=== PATIENT | female | born 1945 | race Caucasian/White ===

== ENCOUNTER 2016-11-05 15:54 | Emergency (ER) | payer MEDICARE, BC ==
[2016-11-05 16:05] VITALS: BP 156/66
--- NOTE | 2016-11-05 16:08 | EDM.PDOC ---
ED HPI ENT - General Chief Complaint: ENT Problem Stated Complaint: HEADACHE,NECKACHE,COLD FOR 2 WEEKS Time Seen by Provider: 11/05/16 16:07 Source of Information: Reports: Patient, RN, RN notes reviewed History Limitations: Reports: No limitations - History of Present Illness INITIAL COMMENTS - FREE TEXT/NARRATIVE: Patient presents with 2-3 week history of sinus pain/pressure with postnasal drip. Sore throat with occasional cough. Denies fever. Occasional chills. 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, Other medication(s) - Related Data Allergies/ADRs: Allergies Allergy/AdvReac Type Severity Reaction Status Date / Time hydrocodone Allergy Nausea Verified 11/05/16 15:58 Sulfa (Sulfonamide Allergy unkown Verified 11/05/16 15:58 Antibiotics) Home Meds: Home Meds Lovastatin [Lovastatin] 60 mg PO DAILY 12/18/14 [History] Warfarin [Coumadin] 6.5 mg PO 12/18/14 [History] Past Medical History HEENT History: Reports: Impaired vision, Other (see below) (vertigo) Cardiovascular History: Reports: Heart murmur, Heart valve replacement (after viral infection.), Hypertension - Past Surgical History Cardiovascular Surgical History: Reports: Valve replacement (mechanical), Other (see below) Other Cardiovascular Surgeries/Procedures: mechanical valve GI Surgical History: Reports: Appendectomy Female Surgical History: Reports: Hysterectomy Social & Family History - Family History Family Medical History: Noncontributory - Tobacco Use Smoking Status *Q: Never Smoker Second Hand Smoke Exposure: No - Caffeine Use Caffeine Use: Reports: Coffee, Soda, Tea - Alcohol Use Days Per Week of Alcohol Use: 0 - Recreational Drug Use Recreational Drug Use: No - Living Situation & Occupation Living situation: Reports: with family Occupation: retired ED ROS ENT - Review of Systems Review Of Systems: ROS reveals no pertinent complaints other than HPI. ED EXAM, ENT - Physical Exam Exam: See Below Exam Limited By: No limitations General Appearance: alert, WD/WN, no apparent distress Eye Exam: bilateral eye: normal inspection Ears: other (right TM retracted ossicles protruding. No erythema. ) Nose: injected turbinates (inferior with purulent drainage right and left. ), other (oral membranes erythematous with postnasal drip. ) Head: atraumatic, normocephalic Neck: normal inspection, supple, non-tender, full range of motion Respiratory/Chest: other (rattly in apex in lungs.) Cardiovascular: normal peripheral pulses, regular rate, rhythm, no edema, no gallop, no JVD, no murmur, no rub GI/Abdominal: normal bowel sounds, soft, non tender, no organomegaly, no distention, no abnormal bruit, no mass Back: normal inspection, full range of motion Extremities: normal inspection, normal range of motion, non-tender, no pedal edema, normal capillary refill Neurological: alert, oriented, CN II-XII intact, normal cognition, normal gait, normal reflexes, no motor/sensory deficits Psychiatric: normal affect, normal mood Skin: Warm, Dry, Intact, Normal color, No rash Lymphatic: no adenopathy Course - Vital Signs Last Recorded V/S: Last Vital Signs Temp 35.9 C 11/05/16 16:04 Pulse 74 11/05/16 16:04 Resp 20 11/05/16 16:04 BP 156/66 H 11/05/16 16:04 Pulse Ox 98 11/05/16 16:04 - Orders/Labs/Meds Orders: Active Orders 24 hr Category Date Time Status CULTURE STREP A CONFIRMATION [] Stat Lab 11/05/16 16:09 Results STREP SCRN A RAPID W CULT CONF [] Stat Lab 11/05/16 16:09 Results Labs: Rapid strep: negative Influenza A/B: negative Departure - Departure Time of Disposition: 16:56 Disposition: Home, Self-Care 01 Condition: good Clinical Impression: Labyrinthitis of right ear Sinusitis Qualifiers: Sinusitis location: unspecified location Chronicity: acute Recurrence: non- recurrent Qualified Code(s): J01.90 - Acute sinusitis, unspecified Barotitis media Qualifiers: Encounter type: initial encounter Qualified Code(s): T70.0XXA - Otitic barotrauma, initial encounter Instructions: Sinusitis, Adult, [id number], Sinus Headache, Barotitis Media, Labyrinthitis, [id number] Forms: ED Department Discharge Additional Instructions: Rx: Augmentin 875mg Use over the counter Coricidin HBP Chest Congestion & Cough, follow direction on label. Frequent saltwater gargles until improved. Follow up in clinic in 5 to 7 days for recheck. - My Orders Last 24 Hours: My Active Orders 11/05/16 16:09 CULTURE STREP A CONFIRMATION [RM] Stat STREP SCRN A RAPID W CULT CONF [RM] Stat - Assessment/Plan Last 24 Hours: My Active Orders 11/05/16 16:09 CULTURE STREP A CONFIRMATION [RM] Stat STREP SCRN A RAPID W CULT CONF [RM] Stat
== END 2016-11-05 17:03 | disposition home or self-care (01) ==
LOC: DL.ED 15:54
DX: H83.01 Labyrinthitis, right ear (principal); J01.90 Acute sinusitis, unspecified; T70.0XXA Otitic barotrauma, initial encounter; Z88.5 Allergy status to narcotic agent; Z88.2 Allergy status to sulfonamides; Z90.710 Acquired absence of both cervix and uterus; Z90.49 Acquired absence of other specified parts of digestive tract
CPT/HCPCS: 87081; 87430; 87804; 99283; 99284

== ENCOUNTER 2016-11-11 15:25 | Emergency (ER) | payer MEDICARE, BC ==
[2016-11-11] MEDS ORDERED: Sodium Chloride 0.9% 10 ML Syringe FLUSH PRN (15:43)
--- NOTE | 2016-11-11 15:43 | EDM.PDOC ---
<Roque Coffman - Last Filed: 11/11/16 18:51> ED HISTORY OF PRESENT ILLNESS - General Chief Complaint: Chest Pain Stated Complaint: AMB Time Seen by Provider: 11/11/16 15:32 Source of Information: Reports: Patient, Old records, Provider (Dr. Salgado), RN, RN notes reviewed History Limitations: Reports: No limitations - Related Data Allergies/ADRs: Allergies Allergy/AdvReac Type Severity Reaction Status Date / Time hydrocodone Allergy Nausea Verified 11/05/16 15:58 Sulfa (Sulfonamide Allergy unkown Verified 11/05/16 15:58 Antibiotics) Home Meds: Home Meds Acetaminophen [Tylenol] 650 mg PO ASDIRECTED PRN 11/11/16 [History] Azelastine HCl [Azelastine] 1 drop EYEBOTH BID 11/11/16 [History] Brinzolamide [Azopt 1% Ophth Susp] 1 drop EYEBOTH BID 11/11/16 [History] Enalapril [Vasotec] 10 mg PO DAILY 11/11/16 [History] Metoprolol Succinate [Toprol Xl] 50 mg PO DAILY 11/11/16 [History] Warfarin Sodium [Jantoven] 6 mg PO DAILY 11/11/16 [History] amLODIPine [Norvasc] 2.5 mg PO DAILY 11/11/16 [History] atorvaSTATin [Lipitor] 40 mg PO BEDTIME 11/11/16 [History] Past Medical History HEENT History: Reports: Impaired vision, Other (see below) (vertigo) Cardiovascular History: Reports: Heart murmur, Heart valve replacement (after viral infection.), Hypertension - Past Surgical History Cardiovascular Surgical History: Reports: Valve replacement (mechanical), Other (see below) Other Cardiovascular Surgeries/Procedures: mechanical valve GI Surgical History: Reports: Appendectomy Female Surgical History: Reports: Hysterectomy Social & Family History - Family History Family Medical History: Noncontributory - Tobacco Use Smoking Status *Q: Never Smoker Second Hand Smoke Exposure: No - Caffeine Use Caffeine Use: Reports: Coffee, Soda, Tea - Alcohol Use Days Per Week of Alcohol Use: 0 - Recreational Drug Use Recreational Drug Use: No - Living Situation & Occupation Living situation: Reports: with family Occupation: retired Course - Vital Signs Last Recorded V/S: Last Vital Signs Temp 97 F 11/11/16 15:25 Pulse 67 11/11/16 15:25 Resp 18 11/11/16 15:25 BP 125/57 L 11/11/16 15:25 Pulse Ox 98 11/11/16 15:25 - Orders/Labs/Meds Orders: Active Orders 24 hr Category Date Time Status EKG 12 Lead [EKG Documentation Completion] [RC] STAT Care 11/11/16 15:43 Active Peripheral IV Care [RC] . DIRECTED Care 11/11/16 15:44 Active Chest 1V Frontal [CR] Stat Exams 11/11/16 15:43 Taken UA W/MICROSCOPIC [URIN] Stat Lab 11/11/16 15:43 Uncollected Peripheral IV Insertion Adult [OM.PC] Stat Oth 11/11/16 15:43 Ordered Labs: Laboratory Tests 11/11/16 11/11/16 11/11/16 Range/Units 15:55 15:55 15:55 WBC 6.9 (5.0-10.0) 10^3/uL RBC 4.53 (4.2-5.4) 10^6/uL Hgb 13.2 (12.0-16.0) g/dL Hct 39.1 (37.0-47.0) % MCV 86.3 (80-100) fL MCH 29.1 (27.0-34.0) pg MCHC 33.8 (33.0-35.0) g/dL Plt Count 194 (150-450) 10^3/uL Neut % (Auto) 68.7 (42.2-75.2) % Lymph % (Auto) 21.6 (20.5-50.1) % Angelina % (Auto) 7.1 (2-8) % Eos % (Auto) 2.0 (1.0-3.0) % Baso % (Auto) 0.6 (0.0-1.0) % PT 23.9 H (9.0-12.0) SEC INR 2.4 H (0.9-1.2) Sodium 140 (135-145) mmol/L Potassium 4.2 (3.6-5.0) mmol/L Chloride 102 (101-111) mmol/L Carbon Dioxide 29.0 (21.0-31.0) mmol/L Anion Gap 13.2 BUN 23 H (7-18) mg/dL Creatinine 0.9 (0.6-1.3) mg/dL Est Cr Clr Drug Dosing 50.23 mL/min Estimated GFR (MDRD) > 60 BUN/Creatinine Ratio 25.55 Glucose 103 (74-105) mg/dL Calcium 9.2 (8.4-10.2) mg/dl Total Bilirubin 0.7 (0.2-1.0) mg/dL AST 23 (10-42) IU/L ALT 32 (10-60) IU/L Alkaline Phosphatase 73 (42-121) IU/L Creatine Kinase (26-174) IU/L Creatine Kinase Index (0-2.4) % CK-MB (CK-2) (0.4-4.7) ng/mL Troponin I < 0.02 (0.00-0.02) ng/ml B-Natriuretic Peptide 71 (0-100) pg/ml Total Protein 7.2 (6.7-8.2) g/dl Albumin 4.3 (3.2-5.5) g/dl Globulin 2.9 Albumin/Globulin Ratio 1.48 Amylase 59 (28-100) U/L Lipase 18 L (22-51) U/L // Range/Units 15:55 WBC (5.0-10.0) 10^3/uL RBC (4.2-5.4) 10^6/uL Hgb (12.0-16.0) g/dL Hct (37.0-47.0) % MCV (80-100) fL MCH (27.0-34.0) pg MCHC (33.0-35.0) g/dL Plt Count (150-450) 10^3/uL Neut % (Auto) (42.2-75.2) % Lymph % (Auto) (20.5-50.1) % Angelina % (Auto) (2-8) % Eos % (Auto) (1.0-3.0) % Baso % (Auto) (0.0-1.0) % PT (9.0-12.0) SEC INR (0.9-1.2) Sodium (135-145) mmol/L Potassium (3.6-5.0) mmol/L Chloride (101-111) mmol/L Carbon Dioxide (21.0-31.0) mmol/L Anion Gap BUN (7-18) mg/dL Creatinine (0.6-1.3) mg/dL Est Cr Clr Drug Dosing mL/min Estimated GFR (MDRD) BUN/Creatinine Ratio Glucose (74-105) mg/dL Calcium (8.4-10.2) mg/dl Total Bilirubin (0.2-1.0) mg/dL AST (10-42) IU/L ALT (10-60) IU/L Alkaline Phosphatase (42-121) IU/L Creatine Kinase 85 (26-174) IU/L Creatine Kinase Index 1.9 (0-2.4) % CK-MB (CK-2) 1.60 (0.4-4.7) ng/mL Troponin I (0.00-0.02) ng/ml B-Natriuretic Peptide (0-100) pg/ml Total Protein (6.7-8.2) g/dl Albumin (3.2-5.5) g/dl Globulin Albumin/Globulin Ratio Amylase (28-100) U/L Lipase (22-51) U/L Meds: Medications Discontinued Medications Generic Name Dose Route Start Last Admin Trade Name Freq PRN Reason Stop Dose Admin Sodium Chloride 10 ml 11/11/16 15:43 11/11/16 15:30 Saline Flush FLUSH 10 ml ASDIRECTED PRN Administration Keep Vein Open - Radiology Interpretation Free Text/Narrative:: CXR: no acute process CT Results Date: 11/11/16 - Re-Assessments/Exams Free Text/Narrative Re-Assessment/Exam: 11/11/16 18:52 FOR THIS ENCOUNTER THE PATIENT WAS SEEN IN CONJUNCTION WITH [facility] STUDENT REINA LOZOYA. ALL PATIENT CARE AND/OR PROCEDURE(S), DIAGNOSTIC ORDERS, MEDICATION(S) AND TREATMENT ORDERS, DISPOSITION ORDERS/PLANNING, AND DISCHARGE/FOLLOW UP INSTRUCTIONS WERE UNDER MY DIRECT SUPERVISION. gbd Departure - Departure Disposition: Home, Self-Care 01 Clinical Impression: Thoracic back pain Qualifiers: Chronicity: acute Back pain laterality: midline Qualified Code(s): M54.6 - Pain in thoracic spine Instructions: Back Injury Prevention, [id number], Back Pain, Adult, Easy-to- Read, Muscle Strain, [id number] Referrals: Eda Salgado MD [Primary Care Provider] - Forms: ED Department Discharge Additional Instructions: Follow up with primary care provider next week. Return to the ER as needed for worsening pain. <Reina Lozoya - Last Filed: 11/11/16 19:12> ED HISTORY OF PRESENT ILLNESS - History of Present Illness INITIAL COMMENTS - FREE TEXT/NARRATIVE: Patient presents to the ER from the clinic with c/o a burning pain between the shoulder blades. When asked several times how long this has been going on, she continuously states it has been coming and going. She denies chest pain at this time. She states she has had a cough and a cold for about a week and has been seen for this. She was seen in the clinic last week for ear pain, throat pain, and has been on antibiotics for that. She states the pain can be lessened with movement. Denies SOB. Severity: moderate Location, General: Reports: back Quality: Reports: Burning Improves with: Reports: Movement Worsens with: Reports: None Associated Symptoms (General): Reports: cough, headaches ED ROS GENERAL - Review of Systems Review Of Systems: ROS reveals no pertinent complaints other than HPI. ED EXAM, GENERAL - Physical Exam Exam: See Below Exam Limited By: No limitations General Appearance: alert, WD/WN, no apparent distress Eye Exam: bilateral eye: normal inspection Ears: normal external exam, normal canal, hearing grossly normal, normal TMs Nose: normal inspection, normal mucosa, no blood Throat/Mouth: Normal inspection, Normal lips, Normal teeth, Normal gums, Normal oropharynx, Normal voice, No airway compromise Head: atraumatic, normocephalic Neck: normal inspection, supple, non-tender, full range of motion Respiratory/Chest: no respiratory distress, lungs clear, normal breath sounds, no accessory muscle use, chest non-tender Cardiovascular: normal peripheral pulses EKG INTERPRETATION EKG Date: 11/11/16 Rhythm: other (Ventricular trigeminy; 1st degree AV block, non-specific T abnormalities, lateral leads.) Departure - Departure Time of Disposition: 16:41 Reason for Transfer *Q: Primary PCI Indicated Condition: good
[2016-11-11 16:08] VITALS: BP 125/57
[2016-11-11 16:29] LABS: CHLORIDE,CL 102 mmol/L (101-111); SODIUM,NA 140 mmol/L (135-145)
--- NOTE | 2016-11-12 08:31 | CR ---
CLINICAL HISTORY: 71-year-old female with chest pain. INTERPRETATION: External monitoring engineer leads, sternotomy wires and cardiac valve prosthesis. Normal cardiac silhouette (size and configuration) unchanged since 18 December 2014 exam. No cephalization of vascular flow, new signs of alveolar edema or dependent pleural effusion. No lung mass, hilar lymphadenopathy or focal lobar pneumonia. No atelectasis/collapse. No pneumothorax. CONCLUSION: No acute new cardiopulmonary abnormality.
--- NOTE | 2016-11-12 14:44 | EKG ---
11/11/2016- [facility] - Anurag 12-lead EKG shows normal sinus rhythm with occasional PVCs noted and ventricular trigeminy. First-degree AV block with SD interval of 228. No significant ST elevation or ST depression noted on this 12-lead EKG. Nonspecific ST-T wave changes noted on lead II and III. [facility] /[id number]
== END 2016-11-11 17:15 | disposition home or self-care (01) ==
LOC: DL.ED 15:25
DX: M54.6 Pain in thoracic spine (principal); R01.1 Cardiac murmur, unspecified; Z90.49 Acquired absence of other specified parts of digestive tract; Z90.710 Acquired absence of both cervix and uterus; Z88.2 Allergy status to sulfonamides; Z79.01 Long term (current) use of anticoagulants; Z79.899 Other long term (current) drug therapy
CPT/HCPCS: 36415; 71010; 80053; 82150; 82550; 82553; 83690; 83880; 84484; 85025; 85610; 93005; 93010; 99284; J7050

== ENCOUNTER 2018-06-08 13:58 | Emergency (ER) | payer MEDICARE, BC ==
--- NOTE | 2018-06-08 14:10 | EDM.PDOC ---
ED HPI GENERAL MEDICAL PROBLEM - General Chief Complaint: General Stated Complaint: [id number] LEFT SIDE/ LIGHT HEADED Time Seen by Provider: 06/08/18 14:09 Source of Information: Reports: Patient, Old Records, RN, RN Notes Reviewed History Limitations: Reports: No Limitations - History of Present Illness INITIAL COMMENTS - FREE TEXT/NARRATIVE: Pt presents to ER from home by POV with c/o gradual onset this morning of left sided neck pain and tightness/muscle spasm with a burning pain radiating to the left shoulder blade, and down the left arm to the hand and fingers. Pt denies injury. She denies headache, fever, chills, visual changes, swallowing difficulty, slurred speech, facial droop, eyelid droop, chest pain, palpitations , lower extremity numbness, weakness, or ataxia. 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 - Related Data Allergies Allergy/AdvReac Type Severity Reaction Status Date / Time hydrocodone Allergy Nausea Verified 06/08/18 14:13 Sulfa (Sulfonamide Allergy unkown Verified 06/08/18 14:13 Antibiotics) Home Meds: Home Meds Acetaminophen [Tylenol] 650 mg PO ASDIRECTED PRN 11/11/16 [History] Enalapril [Vasotec] 10 mg PO DAILY 11/11/16 [History] Metoprolol Succinate [Toprol Xl] 50 mg PO DAILY 11/11/16 [History] Warfarin Sodium [Jantoven] 6 mg PO DAILY 11/11/16 [History] amLODIPine [Norvasc] 2.5 mg PO DAILY 11/11/16 [History] atorvaSTATin [Lipitor] 40 mg PO BEDTIME 11/11/16 [History] Past Medical History HEENT History: Reports: Impaired Vision, Other (See Below) Cardiovascular History: Reports: Heart Murmur, Heart Valve Replacement, High Cholesterol, Hypertension - Past Surgical History Cardiovascular Surgical History: Reports: Valve Replacement, Other (See Below) Social & Family History - Family History Family Medical History: Noncontributory - Caffeine Use Caffeine Use: Reports: Coffee, Soda, Tea - Living Situation & Occupation Living situation: Reports: with Family Occupation: Retired ED ROS GENERAL - Review of Systems Review Of Systems: ROS reveals no pertinent complaints other than HPI. ED EXAM, GENERAL - Physical Exam Exam: See Below Exam Limited By: No Limitations General Appearance: Alert, WD/WN, No Apparent Distress, Anxious Ears: Normal External Exam, Hearing Grossly Normal Nose: Normal Inspection, Normal Mucosa, No Blood Throat/Mouth: Normal Inspection, Normal Lips, Normal Teeth, Normal Gums, Normal Oropharynx, Normal Voice, No Airway Compromise Head: Atraumatic, Normocephalic Neck: Limited Range of Motion (due to pain/muscle spasms on left neck). No: Carotid Bruit, Lymphadenopathy (L), Lymphadenopathy (R) Respiratory/Chest: No Respiratory Distress, Lungs Clear, Normal Breath Sounds, No Accessory Muscle Use, Chest Non-Tender Cardiovascular: Regular Rate, Rhythm, No Edema, Systolic Murmur (mechanical click) GI/Abdominal: Normal Bowel Sounds, Soft, Non-Tender, No Distention (Female) Exam: Deferred Rectal (Female) Exam: Deferred Back Exam: Normal Inspection, Full Range of Motion. No: CVA Tenderness (L), CVA Tenderness (R) Extremities: Normal Inspection, Normal Range of Motion, Non-Tender, Normal Capillary Refill, No Pedal Edema Neurological: Alert, Oriented, CN II-XII Intact, Normal Cognition, Other ( Subjectively reports slight numbness light touch to entire left upper extremity. No motor deficits.) Skin Exam: Warm, Dry, Intact, Normal Color, No Rash EKG INTERPRETATION EKG Date: 06/08/18 Time: 15:53 Rhythm: Other (SR) Rate (Beats/Min): 60 [place]: Normal P-Wave: Present (1st degree AVB) QRS: Normal ST-T: Normal QT: Normal Comparison: No Change EKG Interpretation Comments: No acute ischemic changes. Course - Vital Signs Last Recorded V/S: Last Vital Signs Temp 36.2 C 06/08/18 14:06 Pulse 62 06/08/18 14:06 Resp 16 06/08/18 14:06 BP 152/66 H 06/08/18 14:06 Pulse Ox 97 06/08/18 14:06 - Orders/Labs/Meds Orders: Active Orders 24 hr Category Date Time Status EKG 12 Lead [EKG Documentation Completion] [RC] STAT Care 06/08/18 14:34 Active Cervical Spine 2V or 3V [CR] Urgent Exams 06/08/18 14:34 Taken Labs: Laboratory Tests 06/08/18 06/08/18 06/08/18 Range/Units 14:45 14:45 14:45 WBC 4.8 L (5.0-10.0) 10^3/uL RBC 4.21 (4.2-5.4) 10^6/uL Hgb 12.0 (12.0-16.0) g/dL Hct 36.2 L (37.0-47.0) % MCV 86.0 (80-100) fL MCH 28.5 (27.0-34.0) pg MCHC 33.1 (33.0-35.0) g/dL Plt Count 180 (150-450) 10^3/uL Neut % (Auto) 63.1 (42.2-75.2) % Lymph % (Auto) 26.7 (20.5-50.1) % [place] % (Auto) 8.1 H (2-8) % Eos % (Auto) 1.7 (1.0-3.0) % Baso % (Auto) 0.4 (0.0-1.0) % PT 35.3 H D (9.0-12.0) SEC INR 3.7 H (0.9-1.2) Sodium 138 (135-145) mmol/L Potassium 4.1 (3.6-5.0) mmol/L Chloride 104 (101-111) mmol/L Carbon Dioxide 27.0 (21.0-31.0) mmol/L Anion Gap 11.1 BUN 20 H (7-18) mg/dL Creatinine 0.8 (0.6-1.3) mg/dL Est Cr Clr Drug Dosing 54.89 mL/min Estimated GFR (MDRD) > 60 BUN/Creatinine Ratio 25.00 Glucose 98 (74-105) mg/dL Calcium 8.3 L (8.4-10.2) mg/dl Total Bilirubin 0.4 (0.2-1.0) mg/dL AST 20 (10-42) IU/L ALT 22 (10-60) IU/L Alkaline Phosphatase 86 (42-121) IU/L Troponin I < 0.02 (0.00-0.02) ng/ml Total Protein 6.4 L (6.7-8.2) g/dl Albumin 3.7 (3.2-5.5) g/dl Globulin 2.7 Albumin/Globulin Ratio 1.37 - Radiology Interpretation Free Text/Narrative:: XR C-spine: no acute fracture, straightening or cervical lordotic curvature, DDD ; see Rad. report. Departure - Departure Time of Disposition: 16:07 Disposition: Home, Self-Care 01 Condition: Good Clinical Impression: Left cervical lymphadenopathy - Discharge Information *PRESCRIPTION DRUG MONITORING PROGRAM REVIEWED*: No *COPY OF PRESCRIPTION DRUG MONITORING REPORT IN PATIENT JUAN: No Forms: ED Department Discharge Additional Instructions: Rx: Norflex 100mg *Do not drive while under the influence of this medication. Use a heating pad to the area of neck pain/tightness. Watch for onset of rash, if a rash develops call your primary clinic immediately. Follow up in clinic if not improving in 4 to 5 days. - My Orders Last 24 Hours: My Active Orders 06/08/18 14:34 EKG 12 Lead [EKG Documentation Completion] [RC] STAT Cervical Spine 2V or 3V [CR] Urgent - Assessment/Plan Last 24 Hours: My Active Orders 06/08/18 14:34 EKG 12 Lead [EKG Documentation Completion] [RC] STAT Cervical Spine 2V or 3V [CR] Urgent
[2018-06-08 14:14] VITALS: BP 152/66
[2018-06-08 15:13] LABS: ANION GAP 11.1; CHLORIDE,CL 104 mmol/L (101-111); SODIUM,NA 138 mmol/L (135-145)
--- NOTE | 2018-06-08 16:06 | CR ---
Clinical history: 73-year-old female with neck pain and "tingling/pain" left arm. No known injury. Interpretation: AP lateral cervical spine abnormal. Generalized mild age-appropriate osteopenia. Straightening of usual cervical lordosis. Reactive atlantoaxial sclerosis. Intervertebral disc space narrowing, endplate sclerosis and hypertrophic marginal/uncinate spur forma tion C4-5, C5-6 and C6-C7. No sign of congenital abnormality, pathologic skeletal lesion, prevertebral soft tissue swelling, cer vical fracture or spondylolisthesis. Faint atheromatous calcification soft tissues the neck on the level of the carotid artery bifurcation . Clinical bruit? No cervical rib anomalies. Lung apices clear. 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
== END 2018-06-08 16:28 | disposition home or self-care (01) ==
LOC: DL.ED 13:58
DX: R59.0 Localized enlarged lymph nodes (principal); E78.00 Pure hypercholesterolemia, unspecified; Z79.899 Other long term (current) drug therapy; Z88.6 Allergy status to analgesic agent; Z88.2 Allergy status to sulfonamides
CPT/HCPCS: 36415; 72040; 80053; 84484; 85025; 85610; 93005; 99284

== ENCOUNTER 2020-08-26 20:22 | Emergency (ER) | payer MEDICARE, BC ==
[2020-08-26 22:28] LABS: ANION GAP 10.7 mEq/L (7-13); CHLORIDE,CL 102 mmol/L (98-107); SODIUM,NA 138 mmol/L (136-145)
--- NOTE | 2020-08-26 23:29 | CT ---
PROCEDURE INFORMATION: Exam: CT Thoracic Spine Without Contrast Exam date and time: 08/26/2020 10:10 PM Age: 75 years old Clinical indication: Other: Back pain TECHNIQUE: Imaging protocol: Computed tomography images of the thoracic spine without contrast. Radiation optimization: All CT scans at this facility use at least one of these dose optimization techniques: automated exposure control; mA and/or kV adjustment per patient size (includes targeted exams where dose is matched to clinical indication); or iterative reconstruction. COMPARISON: No relevant prior studies available. FINDINGS: Vertebrae: Vertebral body heights are well maintained. Discs/Spinal canal/Neural foramina: Multilevel disc space narrowing associated with marginal osteophytes anteriorly and laterally. No significant osseous central canal stenosis. Soft tissues: No abnormal paravertebral soft tissue or mass. Lungs: Partially included lungs are clear except for fine linear scarring at the bases Heart: Mitral valve prosthesis. Kidneys and ureters: There are coarse calcifications associated with the left kidney measuring up to 11.0 mm. There are focal areas of renal cortical scarring bilaterally. The kidneys are partially included. Findings may be related to previous pyelonephritis. IMPRESSION: 1. 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 2. Focal areas of renal cortical scarring bilaterally. 3. Coarse calcifications associated with the left kidney largest measuring up to 12.0 mm partially included worrisome for early staghorn type calculus.
--- NOTE | 2020-08-26 23:32 | EDM.PDOC ---
ED HPI GENERAL MEDICAL PROBLEM - General Chief Complaint: Respiratory Problem Stated Complaint: CAN'T BREATHE Time Seen by Provider: 08/26/20 20:30 Source of Information: Reports: Patient History Limitations: Reports: No Limitations - History of Present Illness INITIAL COMMENTS - FREE TEXT/NARRATIVE: See scanned document - Related Data Allergies Allergy/AdvReac Type Severity Reaction Status Date / Time hydrocodone Allergy Nausea Verified 05/12/19 10:16 Sulfa (Sulfonamide Allergy unkown Verified 05/12/19 10:16 Antibiotics) Home Meds: Home Meds Acetaminophen [Tylenol] 650 mg PO ASDIRECTED PRN 11/11/16 [History] Enalapril [Vasotec] 10 mg PO DAILY 11/11/16 [History] Metoprolol Succinate [Toprol Xl] 50 mg PO DAILY 11/11/16 [History] Warfarin Sodium [Jantoven] 6 mg PO DAILY 11/11/16 [History] amLODIPine [Norvasc] 2.5 mg PO DAILY 11/11/16 [History] atorvaSTATin [Lipitor] 40 mg PO BEDTIME 11/11/16 [History] Past Medical History HEENT History: Reports: Cataract, Impaired Vision, Other (See Below) Other HEENT History: cataract surgury in May 2018 Cardiovascular History: Reports: Heart Murmur, Heart Valve Replacement, High Cholesterol, Hypertension Respiratory History: Reports: None Gastrointestinal History: Reports: None Genitourinary History: Reports: None [employer]IAN History: Reports: None Musculoskeletal History: Reports: None Neurological History: Reports: None Psychiatric History: Reports: None Endocrine/Metabolic History: Reports: None Hematologic History: Reports: None Immunologic History: Reports: None Oncologic (Cancer) History: Reports: None Dermatologic History: Reports: None - Infectious Disease History Infectious Disease History: Reports: None - Past Surgical History Head Surgeries/Procedures: Reports: None HEENT Surgical History: Reports: Cataract Surgery Cardiovascular Surgical History: Reports: Valve Replacement Social & Family History - Family History Family Medical History: No Pertinent Family History - Caffeine Use Caffeine Use: Reports: Coffee, Soda, Tea - Living Situation & Occupation Living situation: Reports: with Family Occupation: Retired ED ROS GENERAL - Review of Systems Review Of Systems: Comprehensive ROS is negative, except as noted in HPI. Reason Not Obtained: See scanned document ED EXAM, GENERAL - Physical Exam Exam: See Below Free Text/Narrative:: See scanned document due to [employer] downtime Course - Orders/Labs/Meds Labs: Laboratory Tests 08/26/20 08/26/20 08/26/20 Range/Units 20:56 20:56 20:56 WBC 5.9 (5.0-10.0) 10^3/uL RBC 4.48 (4.2-5.4) 10^6/uL Hgb 13.1 (12.0-16.0) g/dL Hct 37.9 (37.0-47.0) % MCV 84.6 (80-100) fL MCH 29.2 (27.0-34.0) pg MCHC 34.6 (33.0-35.0) g/dL Plt Count 211 (150-450) 10^3/uL Neut % (Auto) 56.8 (42.2-75.2) % Lymph % (Auto) 32.8 (20.5-50.1) % Ransom % (Auto) 8.8 H (2-8) % Eos % (Auto) 1.4 (1.0-3.0) % Baso % (Auto) 0.2 (0.0-1.0) % PT 35.1 H D (9.0-12.0) SEC INR 3.7 H (0.9-1.2) D-Dimer, Quantitative < 100 (0-400) ng/mL Sodium 138 (136-145) mmol/L Potassium 3.7 (3.5-5.1) mmol/L Chloride 102 (98-107) mmol/L Carbon Dioxide 29 (21-32) mmol/L Anion Gap 10.7 (7-13) mEq/L BUN 24 H (7-18) mg/dL Creatinine 1.05 H (0.55-1.02) mg/dL Est Cr Clr Drug Dosing TNP Estimated GFR (MDRD) 51 BUN/Creatinine Ratio 22.9 (No establ ref range) Glucose 123 H (74-99) mg/dL Lactic Acid (0.4-2.0) mmol/L Calcium 8.6 (8.5-10.1) mg/dL Total Bilirubin 0.4 (0.2-1.0) mg/dL AST 21 (15-37) U/L ALT 41 (14-59) U/L Alkaline Phosphatase 125 H (46-116) U/L Troponin I < 0.017 (0.000-0.056) ng/mL B-Natriuretic Peptide 63 (0-100) pg/ml Total Protein 7.0 (6.4-8.2) g/dL Albumin 3.9 (3.4-5.0) g/dL Globulin 3.1 Albumin/Globulin Ratio 1.3 Amylase 58 (25-115) U/L Lipase 98 (73-393) U/L 08/26/20 Range/Units 20:56 WBC (5.0-10.0) 10^3/uL RBC (4.2-5.4) 10^6/uL Hgb (12.0-16.0) g/dL Hct (37.0-47.0) % MCV (80-100) fL MCH (27.0-34.0) pg MCHC (33.0-35.0) g/dL Plt Count (150-450) 10^3/uL Neut % (Auto) (42.2-75.2) % Lymph % (Auto) (20.5-50.1) % Ransom % (Auto) (2-8) % Eos % (Auto) (1.0-3.0) % Baso % (Auto) (0.0-1.0) % PT (9.0-12.0) SEC INR (0.9-1.2) D-Dimer, Quantitative (0-400) ng/mL Sodium (136-145) mmol/L Potassium (3.5-5.1) mmol/L Chloride (98-107) mmol/L Carbon Dioxide (21-32) mmol/L Anion Gap (7-13) mEq/L BUN (7-18) mg/dL Creatinine (0.55-1.02) mg/dL Est Cr Clr Drug Dosing Estimated GFR (MDRD) BUN/Creatinine Ratio (No establ ref range) Glucose (74-99) mg/dL Lactic Acid 1.1 (0.4-2.0) mmol/L Calcium (8.5-10.1) mg/dL Total Bilirubin (0.2-1.0) mg/dL AST (15-37) U/L ALT (14-59) U/L Alkaline Phosphatase (46-116) U/L Troponin I (0.000-0.056) ng/mL B-Natriuretic Peptide (0-100) pg/ml Total Protein (6.4-8.2) g/dL Albumin (3.4-5.0) g/dL Globulin Albumin/Globulin Ratio Amylase (25-115) U/L Lipase (73-393) U/L Departure - Departure Time of Disposition: 23:30 Disposition: Home, Self-Care 01 Condition: Good Clinical Impression: COVID-19 - Discharge Information *PRESCRIPTION DRUG MONITORING PROGRAM REVIEWED*: Not Applicable *COPY OF PRESCRIPTION DRUG MONITORING REPORT IN PATIENT JUAN: Not Applicable Referrals: Pauline Davis NP [Primary Care Provider] - Forms: ED Department Discharge
--- NOTE | 2020-08-27 06:38 | CT ---
PROCEDURE INFORMATION: Exam: CT Chest Without Contrast; Diagnostic Exam date and time: 08/26/2020 10:10 PM Age: 75 years old Clinical indication: Other: Covid, SOB TECHNIQUE: Imaging protocol: Diagnostic computed tomography of the chest without contrast. Radiation optimization: All CT scans at this facility use at least one of these dose optimization techniques: automated exposure control; mA and/or kV adjustment per patient size (includes targeted exams where dose is matched to clinical indication); or iterative reconstruction. COMPARISON: No relevant prior studies available. FINDINGS: Lungs: There are scant, fine linear scar-like opacities at the bases Pleural space: Unremarkable. No pneumothorax. No pleural effusion. Heart: Mitral valve prosthesis. Aorta: Scant calcifications associated with the wall of the aortic arch without aneurysmal dilatation. Lymph nodes: Unremarkable. No enlarged lymph nodes. Bones/joints: Patient is post median sternotomy. There is mild multilevel degenerative disc disease manifest by disc space narrowing and marginal osteophytes. No acute fracture. Soft tissues: Chest wall soft tissues are unremarkable. Other findings: Scans of the upper abdomen demonstrate no acute findings. IMPRESSION: 1. Fine linear plate atelectasis/scar at the bases. Lungs are otherwise clear. 2. Incidental, postoperative changes from previous median sternotomy and mitral valvular replacement.
== END 2020-08-26 23:35 | disposition home or self-care (01) ==
LOC: DL.ED 20:22
DX: U07.1 COVID-19 (principal); M54.6 Pain in thoracic spine; I10 Essential (primary) hypertension; E78.00 Pure hypercholesterolemia, unspecified; Z88.5 Allergy status to narcotic agent; Z88.2 Allergy status to sulfonamides; Z79.01 Long term (current) use of anticoagulants; Z79.899 Other long term (current) drug therapy
CPT/HCPCS: 36415; 71250; 72128; 80053; 82150; 83605; 83690; 83880; 84484; 85025; 85379; 85610; 93005; 99283; 99285-25

== ENCOUNTER 2022-01-25 20:21 | Emergency (ER) | payer MEDICARE, BC ==
[2022-01-25 20:43] VITALS: BP 159/77; PULSE 70
[2022-01-25 21:07] LABS: ANION GAP 12.9 mEq/L (7-13); CHLORIDE,CL 105 mmol/L (98-107); SODIUM,NA 142 mmol/L (136-145)
[2022-01-25 21:10] LABS: PTT,PARTIAL THROMBOPLSTIN TIME 37.1 SEC (22.0-34.0)
[2022-01-25] MEDS ORDERED: Ciprofloxacin 500 MG Tab PO ONE (21:40)
== END 2022-01-25 21:57 | disposition home or self-care (01) ==
LOC: DL.ED 20:21
DX: N39.0 Urinary tract infection, site not specified (principal); Z88.5 Allergy status to narcotic agent; Z88.2 Allergy status to sulfonamides; Z79.01 Long term (current) use of anticoagulants; Z79.899 Other long term (current) drug therapy
CPT/HCPCS: 36415; 80053; 81001; 83605; 85025; 85610; 85730; 86140; 87086; 99284; A9270